=== PATIENT | female | born 1955 | race Caucasian/White ===

== ENCOUNTER → 2021-01-17 14:45 | Outpatient (CLI) | payer OTHER, SELFPAY ==
--- NOTE | ~2021-01-17 | MM_ITS ---
EXAMINATION: MM screening [place] BI w aleyda HISTORY: Screening mammogram, family history of breast cancer in her sister. TECHNIQUE: Craniocaudal and mediolateral oblique 3-D tomosynthesis images were obtained and synthetic 2-D images were generated. CAD analysis was submitted and interpreted. COMPARISON: 08/24/2015, 07/13/2014, 08/16/2011 BREAST PARENCHYMAL COMPOSITION: The breasts are almost entirely fatty. FINDINGS: There is no evidence of suspicious mass, calcification, or architectural distortion to sugg est malignancy in either breast. There has been no suspicious interval change. IMPRESSION: 1. No mammographic evidence of malignancy. 2. Recommend routine screening mammography in one year. BI-RADS Category 1: Negative Reviewed, dictated and finalized at location A. AD REELER
== END ==
PROVIDERS: PCP Family Medicine; Visit Provider Family Medicine
DX: Z12.31 Encounter for screening mammogram for malignant neoplasm of breast (principal)
CPT/HCPCS: 77063; 77067

== ENCOUNTER 2021-10-18 00:08 | Emergency (ER) | payer OTHER, SELFPAY ==
--- NOTE | ~2021-10-18 | CT_ITS ---
EXAMINATION: CT abdomen pelvis wo con EXAM DATE: 10/18/2021 00:37 INDICATION: Left flank pain TECHNIQUE: Spiral CT of the abdomen and pelvis was performed without contrast. Axial, coronal and sag ittal images were reviewed. The dose-length product (DLP) for this examination was 975.32 mGy-cm. T he exposure was tailored according to patient size (auto mA exposure control), and iterative reconstr uction (ASIR) was used as additional dose reduction technique. Comparison is made to prior examinatio n from 06/13/2017. FINDINGS: There is punctate 2 mm left UVJ stone, mild obstructive nephropathy. There is faint bilater al medullary nephrocalcinosis. The uterus is unremarkable. The bladder is unremarkable. The liver , spleen, adrenal glands and pancreas are unremarkable. There are gallstones within an otherwise unr emarkable gallbladder. No evidence of obstructive biliary disease. There is no retroperitoneal or p elvic lymphadenopathy. Small to moderate-sized umbilical fat-containing hernia. The appendix is normal. There is extensive sigmoid and descending colonic diverticulosis. There is n o adjacent inflammatory change to suggest diverticulitis. The stomach and small bowel are unremarkabl e. There is expected amount of colonic stool. No free intraperitoneal gas. The heart is normal i n size. There are no pericardial or pleural effusions. The lung bases are unremarkable. There are no osteoblastic or osteolytic lesions identified. Advanced lower lumbar spondylosis. IMPRESSION: 1. Left UVJ 2 mm calcification, mild obstructive nephropathy. 2. Mild medullary nephrocalcinosis. 3. Colonic diverticulosis. 4. Umbilical fat-containing hernia. 5. Cholelithiasis. Reviewed, dictated and finalized at location A. RANCE SALESMAN
[2021-10-18 00:09] VITALS: BP 106/63; PULSE 66; RESP 21; TEMP 36.3; O2SAT 100
--- NOTE | 2021-10-18 00:29 | ED.FEMALEGU ---
HPI - Female Genitourinary General Chief complaint: Back Pain/Injury Stated complaint: left flank pain Time Seen by Provider: 10/18/21 00:12 Source: patient Mode of arrival: ambulatory Limitations: no limitations History of Present Illness HPI Narrative: 66 year old female with PMH CAD, s/p 3 stents, diabetes, hypertension and diverticulitis complains of sudden onset of L flank pain approximately 2 hours [employer], woke from sleep, also had multiple bouts of vomiting due to pain. Pain described as sharp, non-radiating, constant. Also states diaphoresis and urinary urgency. No fever, no chest pain, no shortness of breath, no abdominal pain. Patient states has had renal stone in the past. No other complaints. Related Data Home Medications Medication Instructions Recorded Confirmed aspirin 325 mg tablet 325 mg PO DAILY 12/03/19 09/13/21 lactobacillus combination no.8 3 3,000 mmu cells PO DAILY 12/03/19 09/13/21 billion cell capsule multivitamin 1 tablet PO DAILY 12/03/19 09/13/21 Allergies Allergy/AdvReac Type Severity Reaction Status Date / Time No Known Allergies Allergy Verified 07/15/21 10:53 Review of Systems Review of Systems: CONSTITUTIONAL: no fever, no weight loss, no confusion EYES: no vision changes, no eye pain ENT: no rhinorrhea, no sore throat, no difficulty swallowing CARDIOVASCULAR: no chest pain, no leg edema, no palpitations RESPIRATORY: no cough, no shortness of breath, no hemoptysis GASTROINTESTINAL: no abdominal pain, positive nausea, positive vomiting, no diarrhea GENITOURINARY: L flank pain, positive dysuria, no hematuria SKIN: no rash, no jaundice MUSCULOSKELETAL: no limb deformity, no trauma. NEUROLOGIC: No headache, no dizziness, no focal weakness PSYCHIATRIC: No hallucinations, no suicidal ideation [facility] Past Medical History Medical History Benign essential HTN CAD (coronary artery disease), [place] coronary artery Diverticulitis large intestine History of ectopic Hyperlipidemia Hypertension Surgical History Surgical History H/O unilateral salpingectomy History of carpal tunnel surgery History of knee surgery Family History Family History Father Hypertension Mother Hypertension Family history of malignant neoplasm of cervix Sibling Cerebrovascular accident Patient's brother is Other Diabetes mellitus Family history of cardiovascular disease Social History Social History Social History: Smoking packs per day: 1 Smoking cigarettes per day: 20.0 Years smoked: 20 Smoking pack-years: 20.00 Smoking status: Never smoker Tobacco type: cigarettes Second hand tobacco smoke exposure: No Smoking end date: 11/26/10 Additional smoking assessment comments: Smoked for 15 years, ended in 2010 Alcohol intake: never Alcohol use details: Occasionally Substance use: never Substance use type: does not use Additional living arrangements comments: Gender identity (if verbalized by the patient): Female Sexual Orientation (if Verbalized by the Patient): Straight or Heterosexual Exam Narrative: General: alert, afebrile, answering all questions appropriately Head: normocephalic, atraumatic Eyes: EOMI bilaterally, anicteric, no injection ENT: moist mucous membranes, oropharynx patent, no rhinorrhea Neck: supple, trachea midline, no JVD Chest: equal chest rise bilaterally, no chest wall trauma noted Lungs: clear to auscultation bilaterally, respirations unlabored Abd: soft, non-distended, non-tender, no rebound, no gaurding, negative Maldonado's : L CVA tenderness B, bladder non-distended EXT: no deformity noted, moving all extremities equally Skin: warm, dry, no pallor Neuro: alert, orie
[2021-10-18 00:48] LABS: Basophils Percent Auto 0.2 % (0.2-1.2); Eosinophils Absolute Auto 0.3 K/mm3 (0-0.3); Eosinophils Percent Auto 2.1 % (0-4.4); Hematocrit 39.5 % (37.0-47.0); Hemoglobin 12.7 g/dL (12.0-15.0); Immature Granulocyte Absolute 0.05 K/mm3 (0.00-0.031); Immature Granulocyte Percent A 0.4 % (0-0.5); Lymphocytes Absolute Auto 2.33 K/mm3 (0.9-3.2); Lymphocytes Percent Auto 18.1 % (18.3-44.2); Mean Corpuscular HGB Conc 32.2 g/dl (32-36); Mean Corpuscular Hemoglobin 29.8 pg (26-34); Mean Corpuscular Volume 92.7 fl (80-100); Mean Platelet Volume 10.3 fl (7.4-10.4); Monocytes Absolute Auto 0.6 K/mm3 (0.1-0.6); Neutrophils Absolute Auto 9.6 K/mm3 (1.3-6.7); Neutrophils Percent Auto 74.2 % (45.5-73.1); Platelet Count Result 311 k/mm3 (150-375); Red Blood Count 4.26 M/mm3 (4.2-5.4); White Blood Count 12.9 K/mm3 (4.5-10.0)
[2021-10-18 00:59] LABS: Anion Gap 7 mmol/L (8-16); Blood Urea Nitrogen 20 mg/dL (7-17); Calcium 9.6 mg/dL (8.4-10.2); Carbon Dioxide 32 mmol/L (22-30); Chloride 99 mmol/L (98-107); Estimated CRCL calculation 61 ml/min; Estimated Glomerular Filt Rate > 60; Glucose 183 mg/dL (65-110); Sodium 138 mmol/L (137-145)
[2021-10-18] MEDS: SODIUM CHLORIDE 0.9% IV 1,000 ML 999 ML IV CONT (01:12)
[2021-10-18] MEDS: fentaNYL CITRATE INJ (*CRX) 100 MCG/2 ML VIAL 25 MCG IV PUSH (01:12)
[2021-10-18] MEDS: ONDANSETRON INJ 4 MG/2 ML VIAL IV PUSH (01:12)
[2021-10-18 02:02] LABS: Add Urine Microscopic? YES; Appearance Urine Cloudy (Clear); Bilirubin Urine 1+ (Negative); Blood Urine 3+ (Negative); Calcium Oxalate Crystals Urine Present /hpf; Color Urine Amber (Yellow); Glucose Urine UA Negative (Negative); Ketones Urine Negative (Negative); Leukocyte Esterase Ur Negative LEU/UL (Negative); Mucus Urine Heavy /lpf; Nitrate Urine Negative (Negative); Protein Urine 2+ mg/dL (Negative); RBC Urine >75 /hpf (0-2); Squamous Epithelial Cell Urine Many /hpf (Few); WBC Urine 21-30 /hpf
[2021-10-18 02:35] VITALS: BP 146/74; PULSE 74; RESP 16; O2SAT 99
== END 2021-10-18 02:35 | disposition home or self-care (01) ==
PROVIDERS: Emergency Provider Emergency Medicine; PCP Family Medicine
DX: N13.2 Hydronephrosis with renal and ureteral calculous obstruction (principal); N39.0 Urinary tract infection, site not specified; I10 Essential (primary) hypertension; I25.10 Atherosclerotic heart disease of native coronary artery without angina pectoris
CPT/HCPCS: 36415; 74176; 80048; 81001; 85025; 87086; 87088; 96365; 96375; 99284; J0696; J2405; J3010; J7030

== ENCOUNTER → 2022-01-25 13:18 | Outpatient (CLI) | payer OTHER, SELFPAY ==
--- NOTE | ~2022-01-25 | DEXA_ITS ---
Bone Density Report Name: JENNIE MARIN Age: 66 Sex: Female Ethnicity: White Date of : 1955 Indication: postmenopausal; screening for osteoporosis; Referring Provider: LUNA MARIEE Study: Bone densitometry was performed. Exam Date: January 25, 2022 Accession number: [id number] Bone Density: Region BMD T-score Z-score Classification AP Spine (L1-L4) 1.105 0.5 2.4 Normal Femoral Neck (Left) 0.633 -1.9 -0.3 Osteopenia Total Hip (Left) 0.909 -0.3 1.1 Normal Femoral Neck (Right) 0.815 -0.3 1.3 Normal Total Hip (Right) 0.896 -0.4 0.9 Normal Total Hip Mean 0.903 -0.4 1.0 Normal World Health Organization criteria for BMD impression classify patients as: Normal (T-score at or above -1.0), Osteopenia (T-score between -1.0 and -2.5), or Osteoporosis (T-score at or below -2.5). 10-year Fracture Risk(1): Major Osteoporotic Fracture 10% Hip Fracture 1.5% Reported Risk Factors: [place] (), Neck BMD=0.633, BMI=34.8 (1) FRAX(R) Version 3.08. Fracture probability calculated for an untreated patient. Fracture probability may be lower if the patient has received treatment. Previous Exams: Region Exam Age BMD T-score BMD Change BMD Change Date g/cm2 vs Baseline vs Previous AP Spine(L1-L4) 01/25/2022 66 1.105 0.5 0.101* 0.101* 08/16/2011 56 1.004 -0.4 Total Hip(Left) 01/25/2022 66 0.909 -0.3 -0.034* -0.034* 08/16/2011 56 0.942 0.0 Total Hip(Right) 01/25/2022 66 0.896 -0.4 -0.057* -0.057* 08/16/2011 56 0.953 0.1 *Denotes significance at 95% confidence level, LSC for AP Spine = 0.022 g/cm2, LSC for Total Hip = 0.027 g/cm2 Clinical Information Provided by Patient: Has used the following medications: Vitamin D Patient maximum height was 65 Menopause Age: 56 No regular weight bearing exercise Does not regularly consume dairy products Drinks caffeinated beverages Onset of menses at age 12 Number of children 1 Impression: The patient has low bone mass, based on the Left Femoral Neck T-score. The patient has an estimated ten-year risk of hip fracture of 1.5% and an estimated ten-year risk of major fracture of 10%, based on the WHO FRAX algorithm. The BMD for the Total Hip(Left) decreased, changing by -0.034 since the last DXA exam. The BMD for the Total Hip(Right) decreased, changing by -0.057 since the last DXA exam. Discussion: BONE DENSITY IS LOW AT ONE OR
== END ==
PROVIDERS: PCP Family Medicine; Visit Provider Family Medicine
DX: Z78.0 Asymptomatic menopausal state (principal); M85.852 Other specified disorders of bone density and structure, left thigh
CPT/HCPCS: 77080

== ENCOUNTER → 2022-06-01 09:46 | Outpatient (CLI) | payer OTHER, SELFPAY ==
--- NOTE | ~2022-06-01 | XR_ITS ---
EXAMINATION: XR thoracic spine 3V DATE: 06/01/2022 10:37 INDICATION: Thoracic back pain TECHNIQUE: AP, lateral and lateral swimmer's views of the thoracic spine were obtained. COMPARISON: None. FINDINGS: There is no fracture, dislocation, or subluxation. There is moderate loss of intervertebral disc space height at multiple levels in the midthoracic spine. The vertebral body heights are mainta ined. Small degenerative osteophytes project from the anterior endplates of multiple vertebral bodies . There is mild S-shaped curvature of the spine. Cholelithiasis is noted. IMPRESSION: 1. Moderate thoracic spondylosis without acute findings. Reviewed, dictated and finalized at location B.
--- NOTE | ~2022-06-01 | XR_ITS ---
EXAMINATION: XR abdomen obstructive series DATE: 06/01/2022 10:37 INDICATION: Abdominal distention TECHNIQUE: Upright and supine views of the abdomen were obtained. COMPARISON: CT, 10/18/2021 FINDINGS: There are no dilated loops of bowel. There is no free intraperitoneal gas. The bowel gas pa ttern is normal. A moderate volume of colonic stool is present. The visualized lung bases are clear . Cholelithiasis is noted. There is severe lower lumbar spondylosis. There is advanced osteoarthritis of the right hip and mild osteoarthritis of the left hip. IMPRESSION: 1. Moderate volume of colonic stool. Nonobstructive bowel gas pattern. 2. Cholelithiasis. Reviewed, dictated and finalized at location B.
== END ==
PROVIDERS: PCP Family Medicine; Visit Provider Family Medicine
DX: R14.0 Abdominal distension (gaseous) (principal); K80.20 Calculus of gallbladder without cholecystitis without obstruction; M47.894 Other spondylosis, thoracic region
CPT/HCPCS: 72072; 74019

== ENCOUNTER → 2023-06-13 11:32 | Outpatient (CLI) | payer OTHER, SELFPAY ==
--- NOTE | ~2023-06-13 | MM_ITS ---
EXAMINATION: MM screening lay[place] BI w aleyda HISTORY: Screening TECHNIQUE: Craniocaudal and mediolateral oblique 3-D tomosynthesis images were obtained and synthetic 2-D images were generated. CAD analysis was submitted and interpreted. COMPARISON: Comparison to multiple prior studies sequentially, with oldest reviewed study dated 07/13. BREAST PARENCHYMAL COMPOSITION: The breasts are almost entirely fatty. FINDINGS: There is no evidence of suspicious mass, calcification, or architectural distortion to sugg est malignancy in either breast. There has been no suspicious interval change. IMPRESSION: 1. No mammographic evidence of malignancy. 2. Recommend routine screening mammography in one year. BI-RADS Category 1: Negative Reviewed, dictated and finalized at location A.
--- NOTE | ~2023-06-13 | CT_ITS ---
CT Scan of the Chest without Contrast: Clinical Indication: Lung cancer screening, personal history of nicotine dependence Technique: Contiguous sections were acquired throughout the chest without intravenous contrast. Dose reduction technique was used on this scan by utilizing automated exposure control and iterative recon struction technique. The dose-length product (DLP) was 172.70 mGy-cm. COMPARISON: 01/11/2011 Findings: There is no evidence of any significant mediastinal, hilar or axillary lymphadenopathy. Small calcifi ed mediastinal and left hilar lymph nodes are present. Coronary artery calcium cages are present. There is no evidence of pleural or pericardial effusion. Calcified lingular granuloma noted. Calcified left lower lobe granuloma also noted.. Images through the upper abdomen reveal no abnormalities. Impression: Lung RADS 2: Benign appearance. 12 month follow-up screening CT advised. Reviewed, dictated and finalized at location . Impression: Lung RADS 2: Benign appearance. 12 month follow-up screening CT advised.
== END ==
PROVIDERS: PCP Family Medicine; Visit Provider Family Medicine
DX: Z12.31 Encounter for screening mammogram for malignant neoplasm of breast (principal); Z12.2 Encounter for screening for malignant neoplasm of respiratory organs; Z87.891 Personal history of nicotine dependence
CPT/HCPCS: 71271; 77063; 77067

== ENCOUNTER 2023-07-11 11:21 | Outpatient (CLI) | payer OTHER, SELFPAY ==
--- NOTE | 2023-07-11 11:30 | ECG_ITS ---
Measurements Intervals [place] Rate: 70 P: 61 DC: 169 QRS: 12 QRSD: 94 T: -9 QT: 366 QTc: 397 Interpretive Statements SINUS RHYTHM LOW QRS VOLTAGE IN PRECORDIAL LEADS [QRS DEFLECTION < 1.0 mV IN CHEST LEADS] POSSIBLE INFERIOR MYOCARDIAL INFARCTION [30 ms Q WAVE IN II/aVF], OF INDETERMINATE AGE NO PREVIOUS ECG AVAILABLE FOR COMPARISON Electronically Signed On 07-11-2023 15:25:31 CDT by Domo Garcia M.D.
[2023-07-11 12:18] LABS: Anion Gap 12 mmol/L (8-16); Blood Urea Nitrogen 18 mg/dL (7-17); Calcium 9.3 mg/dL (8.4-10.2); Carbon Dioxide 22 mmol/L (22-30); Chloride 104 mmol/L (98-107); Estimated Glomerular Filt Rate 55; Glucose 105 mg/dL (65-110); Potassium 5.7 mmol/L (3.4-5.0); Sodium 138 mmol/L (137-145)
== END 2023-07-11 11:22 | disposition home or self-care (01) ==
LOC: ANHSURGERY 11:25
PROVIDERS: Anesthesiology; PCP Family Medicine; Visit Provider Surgery
DX: Z01.810 Encounter for preprocedural cardiovascular examination (principal); Z01.812 Encounter for preprocedural laboratory examination; K43.9 Ventral hernia without obstruction or gangrene; E11.9 Type 2 diabetes mellitus without complications; R94.31 Abnormal electrocardiogram [ECG] [EKG]
CPT/HCPCS: 36415; 80048; 86850; 86900; 86901; 93005

== ENCOUNTER 2023-07-18 00:18 | Day surgery (SDC) | payer OTHER, SELFPAY ==
[2023-07-05 14:01] VITALS: BMI 30.7
--- NOTE | 2023-07-05 14:19 | PC.NURSE ---
PRE-OP INSTRUCTIONS, PLEASE READ CAREFULLY Report to the Outpatient Waiting Room, entrance under the green pavilion located off [facility], at time _0600_ on date _07/18/23_. Planned Procedure Time: _0730_. Time changes happen often and if your time is changed the preop area will call you the afternoon before. - You and your visitor will be asked to self-screen and do not enter if you have any COVID symptoms. - A mask is optional within the hospital at this time. Patients may have clear liquids (water, carbonated beverages, clear teas, apple juice) until 3 hours prior to surgery (0430 AM) with a maximum of 20 ounces. - No food from midnight until time of surgery Take the following medications with a SIP of water the morning of surgery: _CARVEDILOL, & TYLENOL IF NEEDED_ DO NOT STOP ANY OF YOUR OTHER PRESCRIPTION MEDICATIONS PRIOR TO SURGERY ?EXCEPT THE FOLLOWING Medications to discontinue per DR. LO - _EFFIENT 5 DAYS PRIOR TO SURGERY (PER PATIENT), Date to take last dose 07/12/23_ Medications to discontinue per ANESTHESIA -_MULTIVITAMIN 3 DAYS PRIOR TO SURGERY, Date to take last dose 07/14/23_ Please no make-up, nail serbian, hairspray, perfume, deodorant, or body powder the day of surgery. No jewelry (including any body piercings) or valuables the day of surgery, leave them at home. Please take a shower or bath the night before, or the morning of, surgery with an antibacterial soap. Wear comfortable, loose fitting clothing. - Jewelry must be removed prior to entering the operating room. Rings and piercings that are not removed may be cut off. - The hospital will not accept responsibility for valuables. - Please leave all valuables, including medications, at home the day of surgery. If you are going home after surgery, a licensed auto driver must drive you home. - NO public transportation without another adult if you receive anesthesia. - We recommend that an adult stay with you for 24 hours following discharge. - We also recommend that you do not drive, make important decision, drink alcoholic beverages, or take any drugs that were not prescribed by your health care provider for at least 24 hours after your discharge time. Follow any additional instructions given to you from your surgeon. HIBICLENS SHOWER AM OF SURGERY If you or anyone in your household have experienced Covid symptoms in the past week, please notify your surgeon or the nurse liaison at the phone number below for possible testing. Telephone instructions given to _PATIENT_and asked if any additional questions and then verbalized understanding. Patient advised to call surgeon office or pre surgery nurse liaison [phone] if any additional questions.
[2023-07-18] VITALS (33 sets, daily range): BP systolic 84–152; BP diastolic 53–83; PULSE 57–76; RESP 12–18; TEMP 36.3–36.6; O2SAT 90–100
[2023-07-18 06:43] LABS: Glucose Point of Care 113 mg/dl (65-105)
[2023-07-18 06:51] LABS: Potassium 4.6 mmol/L (3.4-5.0)
[2023-07-18] MEDS: ACETAMINOPHEN 500 MG TABLET 1000 MG PO (06:55)
[2023-07-18] MEDS: LACTATED RINGERS 1,000 ML 30 ML IV CONT ×3 (06:55→13:19)
--- NOTE | 2023-07-18 07:11 | WPDANESEPPF ---
Anes - Initial Pre Proc Eval Procedure: Operation Date: 07/18/23 07:30 Proposed Procedures p Laparoscopic Incarcerated Ventral Hernia with Mesh, Davinci Assisted - Drew Mccormick DO Date/Time: 07/18/23 07:11 Surgeon: Drew Mccormick DO Pre Op Diagnosis: Incarcerated Ventral Hernia Patient Data Age: 68 Gender: F Height: 1.68 m Weight: 90.1 kg Last Vital Signs Temp 36.5 C 07/18/23 07:00 Pulse 73 07/18/23 07:00 Resp 14 07/18/23 07:00 BP 123/68 07/18/23 07:00 Pulse Ox 98 07/18/23 07:00 O2 Del Method Room Air 07/18/23 07:00 Allergies Allergy/AdvReac Type Severity Reaction Status Date / Time ibuprofen AdvReac Nose Bleed Verified 07/18/23 07:04 Home Medications Medication Instructions Recorded Confirmed Type multivitamin (Multiple Vitamins 1 tablet PO DAILY 12/03/19 07/05/23 History tablet) carvedilol 6.25 mg tablet 6.25 mg PO Q12H #180 tabs 09/15/21 07/18/23 Rx aspirin 81 mg chewable tablet 81 mg PO DAILY 11/01/21 07/05/23 History metformin 1,000 mg tablet See Rx Instructions .Route 10/09/22 07/05/23 Rx .COMPLEX #180 tabs prasugrel 10 mg tablet See Rx Instructions .Route 04/09/23 07/05/23 Rx .COMPLEX #90 tabs empagliflozin 10 mg tablet See Rx Instructions .Route 05/25/23 07/05/23 Rx (Jardiance) .COMPLEX #30 tabs olmesartan 20 mg tablet See Rx Instructions .Route 05/25/23 07/05/23 Rx .COMPLEX #90 tabs simvastatin 40 mg tablet See Rx Instructions .Route 05/25/23 07/05/23 Rx .COMPLEX #90 tabs acetaminophen 650 mg 1,300 mg PO QAM 07/05/23 07/05/23 History tablet,extended release (Tylenol 8 Hour) cetirizine 10 mg tablet See Rx Instructions .Route .COMPLEX 07/05/23 07/05/23 History cimetidine 200 mg tablet 200 mg PO BID 07/05/23 07/05/23 History diphenhydramine 25 1 tablet PO Q6H PRN Pain 07/05/23 07/05/23 History mg-acetaminophen 500 mg tablet (Tylenol PM Extra Strength) Laboratory Tests 07/18/23 07/18/23 06:35 06:41 Potassium 4.6 mmol/L (3.4-5.0) POC Capillary Glucose 113 H mg/dl (65-105) Patient hx anesthesia problems: other (slow to awaken) Family hx anesthesia problems: none Results Review: All pre-operative results and documents have been reviewed as part of the pre-operative evaluation. [facility] Past Medical History Medical History Benign essential HTN CAD (coronary artery disease), [place] coronary artery Diverticulitis large intestine History of ectopic Hyperlipidemia Hypertension Surgical History Surgical History H/O unilateral salpingectomy History of carpal tunnel surgery History of knee surgery Family History Family History Father Hypertension Mother Hypertension Family history of malignant neoplasm of cervix Sibling Cerebrovascular accident Patient's brother is Other Diabetes mellitus Family history of cardiovascular disease Social History Social History Social History: Smoking packs per day: 1 Smoking cigarettes per day: 20.0 Years smoked: 20 Smoking pack-years: 20.00 Smoking status: Former smoker Tobacco type: cigarettes Second hand tobacco smoke exposure: No Smoking end date: 02/24/11 Additional smoking assessment comments: Smoked for 15 years, ended in 2010 Alcohol intake: current Alcohol use details: 2/MONTH Substance use: never Substance use type: does not use Lack of Transportation: No Lack of Food: Never True Current Housing: I Have Housing Concerned About Future Housing: No Difficulty Paying Gas/Electric Bills: No Difficulty Paying for Meds: No Currently Unemployed: YES Education: Decline to Answer Difficulty w/ Childcare or Family Care: No Living a
--- NOTE | 2023-07-18 07:14 | PM.IMHP ---
H&P: HPI History of Present Illness Date/Time: 07/18/23 07:14 Chief Complaint: ventral hernia Narrative: 68 yo woman presents for incarcerated ventral hernia repair. She reports no changes since last seen in office. Review of Systems Review of Systems: All systems reviewed & are unremarkable except as noted in HPI and below Constitutional: Constitutional: Denies chills, Denies fever(s), Denies headache(s) and Denies weight loss Eyes: Eyes: Denies change in vision ENT: Denies dizziness, Denies headache(s), Denies neck mass and Denies throat swelling Cardiovascular: Cardiovascular: Denies chest pain, Denies lightheadedness and Denies dyspnea Respiratory: Respiratory: Denies cough, Denies dyspnea and Denies wheezing Gastrointestinal: Gastrointestinal: Denies abdominal pain, Denies change in bowel habits, Denies nausea and Denies vomiting Genitourinary: Genitourinary: Denies hematuria and Denies dysuria Musculoskeletal: Musculoskeletal: Reports as per HPI Integumentary/Breasts: Skin/Breast: Reports as per HPI Neurologic: Denies dizziness and Denies headache(s) Allergic/Immunologic: Allergic/Immunologic: Denies throat swelling and Denies wheezing PMFSH Past Medical History Medical History Benign essential HTN CAD (coronary artery disease), [place] coronary artery Diverticulitis large intestine History of ectopic Hyperlipidemia Hypertension Surgical History Surgical History H/O unilateral salpingectomy History of carpal tunnel surgery History of knee surgery Family History Family History Father Hypertension Mother Hypertension Family history of malignant neoplasm of cervix Sibling Cerebrovascular accident Patient's brother is Other Diabetes mellitus Family history of cardiovascular disease Social History Social History Social History: Smoking packs per day: 1 Smoking cigarettes per day: 20.0 Years smoked: 20 Smoking pack-years: 20.00 Smoking status: Former smoker Tobacco type: cigarettes Second hand tobacco smoke exposure: No Smoking end date: 02/24/11 Additional smoking assessment comments: Smoked for 15 years, ended in 2010 Alcohol intake: current Alcohol use details: 2/MONTH Substance use: never Substance use type: does not use Lack of Transportation: No Lack of Food: Never True Current Housing: I Have Housing Concerned About Future Housing: No Difficulty Paying Gas/Electric Bills: No Difficulty Paying for Meds: No Currently Unemployed: YES Education: Decline to Answer Difficulty w/ Childcare or Family Care: No Living arrangements: with family Additional living arrangements comments: PT LIVES WITH SPOUSE FLORA [phone] Occupation/Education: retired Gender identity (if verbalized by the patient): Female Sexual Orientation (if Verbalized by the Patient): Straight or Heterosexual Spiritual care concerns: No Meds Home Medications and Allergies Home Medications Medication Instructions Recorded Confirmed Type multivitamin (Multiple Vitamins 1 tablet PO DAILY 12/03/19 07/05/23 History tablet) carvedilol 6.25 mg tablet 6.25 mg PO Q12H #180 tabs 09/15/21 07/18/23 Rx aspirin 81 mg chewable tablet 81 mg PO DAILY 11/01/21 07/05/23 History metformin 1,000 mg tablet See Rx Instructions .Route 10/09/22 07/05/23 Rx .COMPLEX #180 tabs prasugrel 10 mg tablet See Rx Instructions .Route 04/09/23 07/05/23 Rx .COMPLEX #90 tabs empagliflozin 10 mg tablet See Rx Instructions .Route 05/25/23 07/05/23 Rx (Jardiance) .COMPLEX #30 tabs olmesartan 20 mg tablet See Rx Instructions .Route 05/25/23 07/05/23 Rx .COMPLEX #90 tabs simvastatin 40 mg tablet See Rx Instru
--- NOTE | 2023-07-18 07:16 | WPDHPUPDATE1 ---
History and Physical Update Update Date/Time: 07/18/23 07:16 History and Physical has been reviewed, including an updated exam of the patient. There are NO changes in the patient's condition. Risks, benefits, and alternatives have been discussed and questions answered. Patient agrees to proceed with procedure.
[2023-07-18] MEDS: ceFAZolin 2 GM/D5W 50 ML 2 GM/50 ML BAG IVPB (07:24)
[2023-07-18] MEDS: BUPIVACAINE/EPINEPHRINE 0.5% 30 ML VIAL INFILTRATE (08:07)
--- NOTE | 2023-07-18 08:50 | W.PM.PROC2 ---
Procedure Note - Detailed Date of Procedure 07/18/23 Pre-op Diagnosis Incarcerated Ventral Hernia Post-op Diagnosis Same (3 cm incarcerated ventral hernia) Procedure Performed Laparoscopic incarcerated 3 cm ventral hernia repair with mesh, da Malcolm assisted Surgeon Drew Mccormick, Anesthesia General and Local (Exparel) Indications This is a 68-year-old woman who presented with a hernia superior to her umbilicus that had been present over the last 4+ years. Initially it was asymptomatic, but now it is getting larger and causing some pain. She was found to have an incarcerated ventral hernia about 4-5 cm cephalad to the umbilicus. This appeared to be incarcerated with omentum. Discussions were made with the patient about treatment options and decision was made to proceed with laparoscopic incarcerated ventral hernia repair with mesh, da Malcolm assisted. Findings Laparoscopic incarcerated ventral hernia repair was performed. The patient was found have a 3 cm ventral hernia cephalad to the umbilicus incarcerated with omentum. She also had some omental adhesions up to the abdominal wall from her previous abdominal surgeries. These omental adhesions were taken down and then I was able to reduce the incarcerated omentum from the hernia. The hernia defect measured 3 cm wide. A robotic intraperitoneal onlay mesh technique was utilized for repair. No specimens were obtained for pathology. Description of Procedure Procedure as well as risks, benefits, and alternatives were discussed with the patient. Written consent was obtained and placed in chart prior to procedure. Patient was brought back to surgical suite. She was placed supine on operating table. Time-out was done to confirm patient and procedure. She was then intubated by the anesthesia department. A bump was placed under her left hip, and the bed was flexed slightly to extend the space between her costal margin and iliac crest. Her abdomen was prepped and draped in sterile fashion using chlorhexidine prep. A 5 millimeter incision was made in the left upper quadrant, and a 5 millimeter Optiview trocar was advanced through the abdominal layers under direct visualization. Once inside the abdominal cavity, carbon dioxide insufflation was used to create a pneumoperitoneum. Her abdomen was inspected. An 8 millimeter incision was made in the left lower quadrant, and an 8 millimeter robotic trocar was placed under direct visualization. Another 8 millimeter incision was made in the left lateral abdomen, and an 8 millimeter robotic trocar was placed under direct visualization. 0.5% bupivacaine with epinephrine was infiltrated locally around each of the port sites. The 5 millimeter port was removed, and an 8 mm port was placed under direct visualization. The robotic arms were brought up to the patient's bedside and secured to the ports. The camera and instruments were inserted, and I then moved over to the robotic console and took control of the camera and instruments. After careful thorough inspection of the abdominal cavity, I began my dissection at the hernia. The omental adhesions were taken down using scissors with electrocautery. Then reduced the incarcerated omentum from within the hernia defect and then took down the falciform ligament for about 10 cm cephalad to allow for mesh placement. I then measured the hernia size. The hernia measured 3 cm wide. The fascia was closed using an 0-Stratafix running suture in a vertical fashion. A Ventralight ST 15 cm x 10 cm mesh was then placed within the abdominal cavity. This was oriented vertically with the mesh centered on the hernia defect. The mesh was then secured the center and 4 corners using 3-0 Vicryl simple interrupted sutures. I then secured the mesh circumferentially to the abdominal wall using 2 0 V lock running absorbable suture. The repair was inspected, and one final inspection was made around the abdominal cavity. The robotic instrume
[2023-07-18] MEDS: fentaNYL CITRATE INJ (*CRX) 100 MCG/2 ML VIAL 25 MCG IV PUSH ×6 (09:26→09:46)
[2023-07-18 09:44] LABS: Glucose Point of Care 153 mg/dl (65-105)
[2023-07-18] MEDS: HYDROmorphone HCL INJ (*CRX) 1 MG/ML SYR 0.5 MG IV PUSH ×6 (09:52→14:53)
[2023-07-18] MEDS: ONDANSETRON INJ 4 MG/2 ML VIAL IV PUSH ×2 (10:27→16:56)
[2023-07-18] MEDS: diphenhydrAMINE HCl INJ 50 MG/ML VIAL 25 MG IV PUSH (11:08)
[2023-07-18] MEDS: SCOPOLAMINE 1.5 MG PATCH TRANSDERM (11:08)
[2023-07-18] MEDS: oxyCODONE HCL (*CRX) 5 MG TAB IR PO (12:45)
--- NOTE | 2023-07-18 14:58 | SUR.PHASEII ---
Patient being admitted to room 251 for pain control. Patient's family updated on plan. Patient's daughter at bedside. All of patient's belongings transferred with patient. Report given to 2 medical RN.
--- NOTE | 2023-07-18 15:29 | ADMGEN ---
This patient, Sindy Chapman, was admitted to 2 Medical Room 251-01. Patient/family oriented to hospital policies and general routines including ID bracelet, bed and alarms, visiting hours, pain management, procedures, bathroom and other care routines, personal items, smoking policy, room service/diet, and visiting hours. Information on how to activate the Rapid Response Team has been discussed. Patient/Family are encouraged to report perceived risks to care and to ask questions if they do not understand what they are told or what they should do.
[2023-07-18] MEDS: metFORMIN HCL 500 MG TABLET BY MOUTH (16:36)
[2023-07-18] MEDS: LACTATED RINGERS 1,000 ML 100 ML IV CONT (16:41)
[2023-07-18 16:58] LABS: Glucose Point of Care 159 mg/dl (65-105)
[2023-07-18] MEDS: oxyCODONE/ACETAMINOPHEN (*CRX) 5-325 MG TABLET 2 TABLET PO (16:58)
--- NOTE | 2023-07-18 18:47 | PC.NURSE ---
On 07/18/23, the Licence pending nurse, Ashanti Mendoza, provided care and completed [facility] documentation on this patient. I have reviewed the Licence pending nurses documentation and agree with the findings.
[2023-07-18 20:03] LABS: Glucose Point of Care 135 mg/dl (65-105)
[2023-07-18] MEDS: FAMOTIDINE 10 MG TABLET PO (21:06)
[2023-07-18] MEDS: carvediloL 6.25 MG TABLET PO (21:06)
[2023-07-19] MEDS: oxyCODONE/ACETAMINOPHEN (*CRX) 5-325 MG TABLET 1 TABLET PO (03:08)
[2023-07-19 05:34] LABS: Hematocrit 36.2 % (37.0-47.0); Mean Corpuscular HGB Conc 30.4 g/dl (32-36); Mean Corpuscular Hemoglobin 28.9 pg (26-34); Platelet Count Result 245 k/mm3 (150-375); Red Blood Count 3.81 M/mm3 (4.2-5.4); Red Cell Distribution Width 14.7 % (11.5-14.5); White Blood Count 10.6 K/mm3 (4.5-10.0)
[2023-07-19 05:36] VITALS: BP 111/59; PULSE 63; RESP 17; TEMP 36.6; O2SAT 96
[2023-07-19 05:55] LABS: Anion Gap 1 mmol/L (8-16); Blood Urea Nitrogen 18 mg/dL (7-17); Calcium 8.7 mg/dL (8.4-10.2); Carbon Dioxide 30 mmol/L (22-30); Chloride 101 mmol/L (98-107); Estimated CRCL calculation 59 ml/min; Estimated Glomerular Filt Rate > 60; Glucose 108 mg/dL (65-110); Potassium 4.6 mmol/L (3.4-5.0); Sodium 132 mmol/L (137-145)
[2023-07-19 08:23] VITALS: PULSE 58
[2023-07-19] MEDS: ASPIRIN 81 MG CHEWABLE TABLET PO (08:23)
[2023-07-19] MEDS: carvediloL 6.25 MG TABLET PO (08:23)
[2023-07-19] MEDS: polyethylene glycoL 3350 17 GM POWD.PACK PO (08:25)
[2023-07-19] MEDS: EMPAGLIFLOZIN 10 MG TABLET BY MOUTH (08:25)
[2023-07-19] MEDS: OLMESARTAN MEDOXOMIL 20 MG TABLET BY MOUTH (08:25)
[2023-07-19] MEDS: metFORMIN HCL 500 MG TABLET BY MOUTH (08:25)
[2023-07-19] MEDS: FAMOTIDINE 10 MG TABLET PO (08:25)
[2023-07-19 08:33] LABS: Glucose Point of Care 101 mg/dl (65-105)
[2023-07-19] MEDS: oxyCODONE/ACETAMINOPHEN (*CRX) 5-325 MG TABLET 2 TABLET PO (08:58)
--- NOTE | 2023-07-19 11:21 | PM.DS ---
DS: Admitting Diagnosis Discharge Date 07/19/2023 Admitting Diagnosis Postoperative pain, status post laparoscopic incarcerated ventral hernia repair with mesh, da Malcolm assisted DS: Discharge Diagnosis Discharge Diagnosis (1) Postoperative pain: Code(s): G89.18 - Other acute postprocedural pain Status: Acute (2) Encounter for examination following surgery: Code(s): Z09 - Encounter for follow-up examination after completed treatment for conditions other than malignant neoplasm Status: Acute (3) Good recovery after surgery: Code(s): Z98.890 - Other specified postprocedural states Status: Acute (4) Hypertension: Qualifiers: Hypertension type: primary hypertension Qualified Code(s): I10 - Essential (primary) hypertension Code(s): I10 - Essential (primary) hypertension Status: Acute (5) Antiplatelet or antithrombotic long-term use: Code(s): Z79.02 - meterman (current) use of antithrombotics/antiplatelets Status: Acute DS: Summary Hospital Course Reason for hospitalization: Postoperative pain after incarcerated ventral hernia repair Hospital Course: This is a 68-year-old woman who was placed in outpatient extended recovery after undergoing robotic assisted laparoscopic incarcerated ventral hernia repair with mesh on 07/18/2023. Her surgery was uncomplicated, but patient was experiencing significant amount of postoperative pain and nausea and vomiting. She was given medications in recovery to help her postoperative pain, but patient still continued to experience significant breakthrough pain requiring IV pain medications. She was placed in the hospital for continued recovery. Her diet and activity were slowly advanced as tolerated. Her pain gradually improved with the medications and she was able to tolerate her diet. She was then discharged on 07/19/2023. Status at Discharge Functional status at discharge: independent ambulation Overall status at discharge: patient is progressing back to baseline Time Spent with Patient Time attestation: Total time spent providing and/or coordinating discharge services: Time spent: Less than 30 minutes Exam Const: General: comfortable, no acute distress and alert Resp: Effort & Inspection: normal respiratory effort Auscultation: clear to auscultation bilaterally Cardio: Rate: regular rate Rhythm: regular rhythm Heart sounds: S1 normal heart sound present and S2 normal heart sound present GI: Inspection: normal to inspection and incision (Intact with glue) GI Palp: Yes abdominal tenderness (Incisional and supraumbilical), Yes Soft to palpation and No Hernia present Auscultation: normal bowel sounds DS: Data Data Completed and Pending Labs on day of discharge: Labs from last 24 hours 07/19/23 07/19/23 07/18/23 08:29 05:09 19:45 WBC 10.6 H RBC 3.81 L Hgb 11.0 L Hct 36.2 L MCV 95.0 MCH 28.9 MCHC 30.4 L RDW 14.7 H Plt Count 245 MPV 10.0 Sodium 132 L Potassium 4.6 Chloride 101 Carbon Dioxide 30 Anion Gap 1 L BUN 18 H Creatinine 0.90 Estim Creat Clear Calc 59 Estimated GFR > 60 Glucose 108 POC Capillary Glucose 101 135 H Calcium 8.7 07/18/23 16:54 WBC RBC Hgb Hct MCV MCH MCHC RDW Plt Count MPV Sodium Potassium Chloride Carbon Dioxide Anion Gap BUN Creatinine Estim Creat Clear Calc Estimated GFR Glucose POC Capillary Glucose 159 H Calcium Discharge Plan Discharge Patient Disposition: Home, Self-Care Discharge Instructions: DISCHARGE INSTRUCTION SHEET FOR HERNIA, GALLBLADDER AND APPENDIX SURGERIES DR. LO PATIENT TO TAKE HOME 1. May shower, no soaking in bath x 2weeks. 2. Call office for: Wound increasingly painful or bleeding Vomiting Fever of greater than 101 degrees 3. If no bowel movement for three days, take 1 oz. (30 ml) Milk of Magnesia or Dominique
[2023-07-19 12:10] LABS: Glucose Point of Care 97 mg/dl (65-105)
--- NOTE | 2023-07-19 14:14 | PC.NURSE ---
On 07/19/23, the Licence pending nurse, Ashanti Mendoza, provided care and completed [facility] documentation on this patient. I have reviewed the Licence pending nurse's documentation and agree with the findings.
== END 2023-07-19 12:15 | disposition home or self-care (01) ==
LOC: ANHSURGERY 08:50 → ANH2MED 15:09
PROVIDERS: Anesthesiology; PCP Family Medicine; Visit Provider Surgery
PROC: (CPT 49594; principal; 2023-07-18 07:30)
DX: K43.6 Other and unspecified ventral hernia with obstruction, without gangrene (principal); G89.18 Other acute postprocedural pain; R11.2 Nausea with vomiting, unspecified; I10 Essential (primary) hypertension; I25.10 Atherosclerotic heart disease of native coronary artery without angina pectoris; E78.5 Hyperlipidemia, unspecified; Z79.84 Long term (current) use of oral hypoglycemic drugs; Z79.82 Long term (current) use of aspirin; Z79.02 Long term (current) use of antithrombotics/antiplatelets; Z87.891 Personal history of nicotine dependence; E66.9 Obesity, unspecified; Z68.32 Body mass index [BMI] 32.0-32.9, adult
CPT/HCPCS: 49594; S2900; 36415; 80048; 82948; 84132; 85027; 86850; 86900; 86901; 93005; A9270; C1781; J0690; J1100; J1170; J1200; J2250; J2405; J2704; J3010; J7030; J7120

== ENCOUNTER 2024-06-16 10:15 | Outpatient (CLI) | payer OTHER, SELFPAY ==
--- NOTE | ~2024-06-16 | CT_ITS ---
EXAMINATION: CT lung screening DATE: 06/16/2024 10:27 INDICATION: Lung cancer screening. History of smoking. TECHNIQUE: Computed tomography (CT) of the chest was performed without intravenous contrast. The dose -length product was 147.87 mGy-cm. Automated exposure control and iterative reconstruction technique were employed. COMPARISON: CT dated 06/13/2023 FINDINGS: Heart size normal. No significant pleural or pericardial effusion. There are gallstones. Th ere is an extrarenal pelvis of the right kidney, partially visualized. No thoracic lymphadenopathy. T here is atherosclerosis of the aorta and coronary arteries. No endobronchial lesions. No focal airspa ce consolidation. No pneumothorax. There are small nodules in the upper lobes measuring 3 mm or less. There are scattered calcified granulomas. Mild thoracic spondylosis. No acute osseous abnormality. IMPRESSION: 1. Lung-RADS category 2: Benign appearance or behavior. Continue annual screening with noncontrast lo w-dose chest CT in 12 months. Reviewed, dictated and finalized at location B. IMPRESSION: 1. Lung-RADS category 2: Benign appearance or behavior. Continue annual screeni ng with noncontrast low-dose chest CT in 12 months.
== END 2024-06-16 10:16 ==
LOC: MICIMG 10:16
PROVIDERS: PCP Family Medicine; Visit Provider Family Medicine
DX: Z12.2 Encounter for screening for malignant neoplasm of respiratory organs (principal); Z87.891 Personal history of nicotine dependence
CPT/HCPCS: 71271

== ENCOUNTER 2024-06-30 09:13 | Outpatient (CLI) | payer OTHER, SELFPAY ==
--- NOTE | ~2024-06-30 | DEXA_ITS ---
Bone Density Report Name: JENNIE MARIN Age: 69 Sex: Female Ethnicity: White Date of : 1955 Indication: postmenopausal; screening for osteoporosis; height loss; history of glucocorticoids; Referring Provider: LUNA MARIEE Study: Bone densitometry was performed. Exam Date: June 30, 2024 Accession number: [id number] Bone Density: Region BMD T-score Z-score Classification AP Spine(L1-L4) 1.125 0.7 2.8 Normal Femoral Neck (Left) 0.652 -1.8 0.0 Osteopenia Total Hip (Left) 0.893 -0.4 1.1 Normal Femoral Neck (Right) 0.805 -0.4 1.4 Normal Total Hip (Right) 0.904 -0.3 1.1 Normal Total Hip Mean 0.898 -0.4 1.1 Normal World Health Organization criteria for BMD impression classify patients as: Normal (T-score at or above -1.0), Osteopenia (T-score between -1.0 and -2.5), or Osteoporosis (T-score at or below -2.5). 10-year Fracture Risk(1): Major Osteoporotic Fracture 16% Hip Fracture 2.8% Reported Risk Factors: [place] (), Neck BMD=0.652, BMI=30.4, glucocorticoids (1) FRAX(R) Version 3.08. Fracture probability calculated for an untreated patient. Fracture probability may be lower if the patient has received treatment. Clinical Information Provided by Patient: Has taken Glucocorticoids Patient maximum height was 66.0 Does not regularly consume dairy products Drinks caffeinated beverages Onset of menses at age 10 Number of children 1 Impression: The patient has low bone mass, based on the Left Femoral Neck T-score. The patient has an estimated ten-year risk of hip fracture of 2.8% and an estimated ten-year risk of major fracture of 16%, based on the WHO FRAX algorithm. The patient has risk factors, including: history of glucocorticoid therapy. Discussion: BONE DENSITY IS LOW AT ONE OR MORE SKELETAL SITES. This patient's lowest T-score is low at one or more skeletal sites. It meets the World Health Organization's (WHO) criteria for ?low bone mass? (T-score between -1.0 and -2.5). The patient's 10-year risk of fracture as calculated by FRAX is less than the threshold where pharmacological therapy is recommended by the National Osteoporosis Foundation (NOF). However, all treatment decisions require clinical judgment and consideration of individual patient factors, including patient preferences, comorbidities, previous drug use, risk factors not captured in the FRAX model (e.g., frailty, falls, vitamin D deficiency, increased bone turnover, interval significant decline in bone density) and possible under or overestimation of fracture risk by FRAX. The patient should follow a healthful lifestyle (good nutrition with adequate calcium and vitamin D, and appropriate weight-bearing exercise). Follow-Up: Consider repeating this study in 2 to 3 years to reassess this
== END 2024-06-30 09:14 | disposition home or self-care (01) ==
LOC: ANHIMG 09:15
PROVIDERS: PCP Family Medicine; Visit Provider Family Medicine
DX: Z78.0 Asymptomatic menopausal state (principal)
CPT/HCPCS: 77080

== ENCOUNTER 2024-07-02 11:13 | Outpatient (CLI) | payer OTHER, SELFPAY ==
--- NOTE | ~2024-07-02 | XR_ITS ---
Left Knee Technique: AP, lateral, and sunrise views were obtained. Clinical History: Pain Findings: No fracture or dislocation is seen. Osseous alignment is anatomic. Mild tricompartmental de generative spurring noted. Soft tissues are unremarkable. No joint effusion is seen. Impression: . Mild tricompartmental degenerative spurring. Reviewed, dictated and finalized at location . Impression: . Mild tricompartmental degenerative spurring.
== END 2024-07-02 11:14 | disposition home or self-care (01) ==
PROVIDERS: PCP Family Medicine; Visit Provider Physician Assistant
DX: M25.762 Osteophyte, left knee (principal)
CPT/HCPCS: 73562

== ENCOUNTER 2024-08-27 15:28 | Outpatient (CLI) | payer OTHER, SELFPAY ==
--- NOTE | ~2024-08-27 | MM_ITS ---
EXAMINATION: MM screening layton BI w aleyda HISTORY: Screening TECHNIQUE: Craniocaudal and mediolateral oblique 3-D tomosynthesis images were obtained and synthetic 2-D images were generated. CAD analysis was submitted and interpreted. COMPARISON: Comparison to multiple prior studies sequentially, with oldest reviewed study dated 08/24. BREAST PARENCHYMAL COMPOSITION: Not Dense: The breasts are almost entirely fatty. FINDINGS: There is no evidence of suspicious mass, calcification, or architectural distortion to sugg est malignancy in either breast. There has been no suspicious interval change. IMPRESSION: 1. No mammographic evidence of malignancy. 2. Recommend routine screening mammography in one year. BI-RADS Category 1: Negative Reviewed, dictated and finalized at location B.
== END 2024-08-27 15:29 | disposition home or self-care (01) ==
LOC: MICIMG 15:28
PROVIDERS: PCP Family Medicine; Visit Provider Family Medicine
DX: Z12.31 Encounter for screening mammogram for malignant neoplasm of breast (principal)
CPT/HCPCS: 77063; 77067

== ENCOUNTER 2024-11-05 01:27 | Day surgery (SDC) | payer OTHER, SELFPAY ==
[2024-10-29 14:21] VITALS: BMI 27.4
--- NOTE | 2024-10-30 10:48 | PC.NURSE ---
Spoke with patient regarding medication prasugrel(effient), Pt. verbalizes understanding that the last dose is to be taken on 10/31/2024 and the Endoscopist will instruct them when to restart after the procedure.
[2024-11-05 07:08] VITALS: BP 125/85; PULSE 88; RESP 16; TEMP 36.2; O2SAT 97
[2024-11-05] MEDS: LACTATED RINGERS 1,000 ML 150 ML IV CONT (07:21)
[2024-11-05 07:25] LABS: Glucose Point of Care 112 mg/dl (65-105)
--- NOTE | 2024-11-05 07:48 | P.PNAN_ITS ---
Anes - Initial Pre Proc Eval Procedure: Operation Date: 11/05/24 08:30 Proposed Procedures p Screening Colonoscopy - Aime Gooden MD Date/Time: 11/05/24 07:48 Surgeon: Aime Gooden MD Pre Op Diagnosis: screening neoplasm of colon, hx of colon polyps Patient Data Age: 69 Gender: F Height: 1.66 m Weight: 76.6 kg Last Vital Signs Temp 36.2 C L 11/05/24 07:08 Pulse 88 11/05/24 07:08 Resp 16 11/05/24 07:08 BP 125/85 11/05/24 07:08 Pulse Ox 97 11/05/24 07:08 O2 Del Method Room Air 11/05/24 07:08 Allergies Allergy/AdvReac Type Severity Reaction Status Date / Time ibuprofen AdvReac Nose Bleed Verified 11/05/24 07:06 Home Medications ?Medication ?Instructions ?Recorded ?Confirmed ?Type multivitamin (Multiple Vitamins 1 tablet PO DAILY 12/03/19 11/05/24 History tablet) carvedilol 6.25 mg tablet 6.25 mg PO Q12H #180 tabs 09/15/21 11/05/24 Rx aspirin 81 mg chewable tablet 81 mg PO DAILY 11/01/21 11/05/24 History cimetidine 200 mg tablet 200 mg PO BID 07/05/23 11/05/24 History simvastatin 40 mg tablet See Rx Instructions .Route 05/19/24 11/05/24 Rx .COMPLEX #90 tabs olmesartan 20 mg tablet See Rx Instructions .Route 07/24/24 11/05/24 Rx .COMPLEX #90 tabs prasugrel 10 mg tablet See Rx Instructions .Route 07/24/24 11/05/24 Rx .COMPLEX #90 tabs metformin 1,000 mg tablet See Rx Instructions .Route 08/20/24 11/05/24 Rx .COMPLEX #180 tabs empagliflozin 10 mg tablet See Rx Instructions .Route 09/21/24 11/05/24 Rx (Jardiance) .COMPLEX #90 tabs fluticasone propionate 50 1 spray intranasal Q12H #48 grams 10/30/24 11/05/24 Rx mcg/actuation nasal spray,suspension Laboratory Tests 11/05/24 07:19 POC Capillary Glucose 112 H mg/dl (65-105) Patient hx anesthesia problems: post op nausea/vomiting Family hx anesthesia problems: none Results Review: All pre-operative results and documents have been reviewed as part of the pre- operative evaluation. [facility] Past Medical History Medical History Pre-op exam Pre-op testing Encounter for follow-up examination after completed treatment for conditions other than malignant neoplasm Postoperative anemia Hyponatremia Good recovery after surgery Encounter for examination following surgery Postoperative pain Atherosclerosis of coronary artery of [place] heart with stable angina pectoris Incarcerated ventral hernia Ventral hernia Biceps tendonitis of both shoulders Screen for colon cancer Constipation by delayed colonic transit Back pain Abdominal pain Ureteral stone with hydronephrosis Dysuria History of ectopic Postmenopausal Borderline diabetes CAD (coronary artery disease) Hyperlipidemia Breast cancer screening Trigger thumb, right thumb Earache on left Diverticulitis large intestine Benign essential HTN CAD (coronary artery disease), [place] coronary artery Hypertension Surgical History Surgical History H/O ventral hernia repair Laparoscopic incarcerated 3 cm ventral hernia repair with mesh, da Malcolm assisted on 07/18/23 [facility] H/O abdominal surgery H/O unilateral salpingectomy History of knee surgery History of carpal tunnel surgery Family History Family History Father Hypertension Mother Hypertension Family history of malignant neoplasm of cervix Sibling Cerebrovascular accident Patient's brother is Other Diabetes mellitus Family history of cardiovascular disease Social History Social History Social History: Smoking packs per day: 1 Smoking cigarettes per day: 20.0 Years smoked: 20 Smoking pack-years: 20.00 Smoking status: Former smoker Second hand tobacco smoke exposure: No Additional smoking assessment comments: Smoked for 15 years, ended in 2010 Alcohol intake: current Drinks per week: 1 Alcohol use details: 2/MONTH Substance use: never Substance use type: does not use Do You Feel Safe in your Home?: Yes Lack of Transportation: No Lack of Food: Never True Current Housing: I Have Housing Concerned About Future Housing: No Difficulty Paying Gas/Electric Bills: No Difficulty Paying for Meds: No Currently Unemployed: No Education: Associate Degree Difficulty w/ Childcare or Family Care: No Living arrangements: with family Occupation/Education: retired Gender identity (if verbalized by the patient): Female Sexual Orientation (if Verbalized by the Patient): Straight or Heterosexual Spiritual care concerns: No Anes - Eval Final PreProcedure Day of Procedure 11/05/24 07:48 Patient weight: overweight Heart: regular rate and rhythm Lungs: decreased breath sounds Airway: Mallampati scale class III Last oral intake: >/= 8 hours ASA classification: III Emergent: no Anesthetic plan: proceed Anesthesia type and monitoring: general GIVS and standard monitoring Results Review: All pre-operative results and documents have been reviewed as part of the pre- operative evaluation. Informed Consent: The patient's anesthetic plan and its attendant risks and benefits were discussed with the patient/family/POA. Questions were solicited and answers provided to the satisfaction of the patient/family/POA.
--- NOTE | 2024-11-05 08:12 | PM.HPGS ---
History of Present Illness History of Present Illness Consent: Risks, benefits, and alternatives have been discussed and questions answered. Patient agrees to proceed with procedure. Chief complaint: screening neoplasm of colon, hx of colon polyps Narrative: iSndy Chapman is a 69 year old female with previous adenoma colon polyp but last colonoscopy without any in 2019. Review of Systems Review of Systems: All systems reviewed & are unremarkable except as noted in HPI and below PMFSH Past Medical History Medical History (Updated 11/05/24 @ 08:14 by Aime Gooden MD) Colon polyp Pre-op exam Pre-op testing Encounter for follow-up examination after completed treatment for conditions other than malignant neoplasm Postoperative anemia Hyponatremia Good recovery after surgery Encounter for examination following surgery Postoperative pain Atherosclerosis of coronary artery of [place] heart with stable angina pectoris Incarcerated ventral hernia Ventral hernia Biceps tendonitis of both shoulders Screen for colon cancer Constipation by delayed colonic transit Back pain Abdominal pain Ureteral stone with hydronephrosis Dysuria History of ectopic Postmenopausal Borderline diabetes CAD (coronary artery disease) Hyperlipidemia Breast cancer screening Trigger thumb, right thumb Earache on left Diverticulitis large intestine Benign essential HTN CAD (coronary artery disease), [place] coronary artery Hypertension Surgical History Surgical History H/O ventral hernia repair Laparoscopic incarcerated 3 cm ventral hernia repair with mesh, da Malcolm assisted on 07/18/23 [facility] H/O abdominal surgery H/O unilateral salpingectomy History of knee surgery History of carpal tunnel surgery Family History Family History Father Hypertension Mother Hypertension Family history of malignant neoplasm of cervix Sibling Cerebrovascular accident Patient's brother is Other Diabetes mellitus Family history of cardiovascular disease Social History Social History Social History: Smoking packs per day: 1 Smoking cigarettes per day: 20.0 Years smoked: 20 Smoking pack-years: 20.00 Smoking status: Former smoker Second hand tobacco smoke exposure: No Additional smoking assessment comments: Smoked for 15 years, ended in 2010 Alcohol intake: current Drinks per week: 1 Alcohol use details: 2/MONTH Substance use: never Substance use type: does not use Do You Feel Safe in your Home?: Yes Lack of Transportation: No Lack of Food: Never True Current Housing: I Have Housing Concerned About Future Housing: No Difficulty Paying Gas/Electric Bills: No Difficulty Paying for Meds: No Currently Unemployed: No Education: Associate Degree Difficulty w/ Childcare or Family Care: No Living arrangements: with family Occupation/Education: retired Gender identity (if verbalized by the patient): Female Sexual Orientation (if Verbalized by the Patient): Straight or Heterosexual Spiritual care concerns: No Meds Home Medications and Allergies Home Medications ?Medication ?Instructions ?Recorded ?Confirmed ?Type multivitamin (Multiple Vitamins 1 tablet PO DAILY 12/03/19 11/05/24 History tablet) carvedilol 6.25 mg tablet 6.25 mg PO Q12H #180 tabs 09/15/21 11/05/24 Rx aspirin 81 mg chewable tablet 81 mg PO DAILY 11/01/21 11/05/24 History cimetidine 200 mg tablet 200 mg PO BID 07/05/23 11/05/24 History simvastatin 40 mg tablet See Rx Instructions .Route 05/19/24 11/05/24 Rx .COMPLEX #90 tabs olmesartan 20 mg tablet See Rx Instructions .Route 07/24/24 11/05/24 Rx .COMPLEX #90 tabs prasugrel 10 mg tablet See Rx Instructions .Route 07/24/24 11/05/24 Rx .COMPLEX #90 tabs metformin 1,000 mg tablet See Rx Instructions .Route 08/20/24 11/05/24 Rx .COMPLEX #180 tabs empagliflozin 10 mg tablet See Rx Instructions .Route 09/21/24 11/05/24 Rx (Jardiance) .COMPLEX #90 tabs fluticasone propionate 50 1 spray intranasal Q12H #48 grams 10/30/24 11/05/24 Rx mcg/actuation nasal spray,suspension Allergies Allergy/AdvReac Type Severity Reaction Status Date / Time ibuprofen AdvReac Nose Bleed Verified 11/05/24 07:06 Vital Signs Vital Signs - 24 hr 11/05/24 07:08 Temperature 97.1 F L Pulse Rate 88 Respiratory Rate 16 Blood Pressure 125/85 Pulse Oximetry 97 Oxygen Delivery Room Air Exam Const: General: comfortable and no acute distress HENMT: Face/Nose/Sinus: Normal nares present Eyes: General: appearance normal, both eyes and all related structures Neck: Neck: no JVD Resp: Auscultation: clear to auscultation bilaterally Cardio: Rate: regular rate Rhythm: regular rhythm GI: Inspection: non-distended GI Palp: Yes Soft to palpation Skin: General skin exam: normal color Neuro: General: gait normal Speech: normal speech Extrem: General: normal to inspection Psych: Mental Status: mental status grossly normal Assessment and Plan Assessment and plan (1) Colon polyp: Code(s): K63.5 - Polyp of colon Status: Acute Assessment and Plan: colonoscopy
[2024-11-05 08:35] VITALS: BP 120/43; PULSE 83; RESP 25; O2SAT 100
[2024-11-05 08:45] VITALS: BP 118/70; PULSE 77; RESP 21; O2SAT 100
[2024-11-05 08:55] VITALS: BP 106/74; PULSE 74; RESP 18; O2SAT 98
== END 2024-11-05 09:01 | disposition home or self-care (01) ==
PROVIDERS: PCP Family Medicine; Visit Provider Internal Medicine Gastroenterology
PROC: 0DJD8ZZ Inspection of Lower Intestinal Tract, Via Natural or Artificial Opening Endoscopic (ICD-10-PCS; CPT 45378; principal; 2024-11-05 08:30)
DX: Z12.11 Encounter for screening for malignant neoplasm of colon (principal); D12.5 Benign neoplasm of sigmoid colon; D12.3 Benign neoplasm of transverse colon; K64.8 Other hemorrhoids; K57.30 Diverticulosis of large intestine without perforation or abscess without bleeding; E78.5 Hyperlipidemia, unspecified; I10 Essential (primary) hypertension; E87.1 Hypo-osmolality and hyponatremia; I25.118 Atherosclerotic heart disease of native coronary artery with other forms of angina pectoris; Z79.82 Long term (current) use of aspirin; Z79.84 Long term (current) use of oral hypoglycemic drugs; Z98.890 Other specified postprocedural states; Z87.891 Personal history of nicotine dependence; Z87.442 Personal history of urinary calculi; Z87.19 Personal history of other diseases of the digestive system; Z80.49 Family history of malignant neoplasm of other genital organs; Z82.49 Family history of ischemic heart disease and other diseases of the circulatory system
CPT/HCPCS: 45385; 82948; 88305; J2003; J2704; J7120

== ENCOUNTER 2025-08-31 10:38 | Outpatient (CLI) | payer OTHER, SELFPAY ==
--- NOTE | ~2025-08-31 | MM_ITS ---
EXAMINATION: screening [facility] BI w aleyda INDICATION: Asymptomatic, referred for screening mammogram COMPARISON: 08/27/2024 through 08/16/2011 TECHNIQUE: Digital Breast Tomosynthesis CC, MLO views of Both breasts were obtained with computer-aided detection to assist in interpretation of the study. FINDINGS: The breasts are almost entirely fatty. There is a mass in the upper outer right breast at middle third. Elsewhere, there are no mammographic features of malignancy. IMPRESSION: 1. Right breast Mass. 2. No evidence of malignancy in the Left breast. RECOMMENDATION: Right breast Diagnostic mammogram with true lateral, appropriate spot compression views and an ultrasound if needed. BI-RADS Category 0: Incomplete: Needs additional imaging evaluation. Reviewed, dictated and finalized at location B. IMPRESSION: 1. Right breast Mass. 2. No evidence of malignancy in the Left breast. RECOMMENDATION: Right breast Diagnostic mammogram with true lateral, appropriate spot compressi on views and an ultrasound if needed. BI-RADS Category 0: Incomplete: Needs additional imaging evaluation.
== END 2025-08-31 10:39 | disposition home or self-care (01) ==
LOC: MICIMG 10:39
PROVIDERS: PCP Family Medicine; Visit Provider Student in an Organized Health Care Education/Training Program
DX: Z12.31 Encounter for screening mammogram for malignant neoplasm of breast (principal); R92.8 Other abnormal and inconclusive findings on diagnostic imaging of breast
CPT/HCPCS: 77063; 77067

== ENCOUNTER 2025-10-15 08:21 | Outpatient (CLI) | payer OTHER, SELFPAY ==
--- NOTE | ~2025-10-15 | MMUS_ITS ---
EXAMINATION: MM diagnostic [place] RT w aleyda, US breast RT limited INDICATION: 70-year old female; BI-RADS 0, right breast finding COMPARISON: 08/31/2025 TECHNIQUE: Digital breast tomosynthesis True lateral and spot compression CC and MLO views of the RIGHT breast were obtained with computer-aided detection to assist in interpretation of the study. FINDINGS: The breasts are almost entirely fatty. A circumscribed mass persists in the upper outer at middle third. Ultrasound was performed for further evaluation. RIGHT BREAST ULTRASOUND FINDINGS: Targeted evaluation of the area of concern was completed. There is a 0.3 x 0.3 x 0.2 cm anechoic mass at 10:00 location 5 cm from the nipple in the RIGHT breast that correlates to the area of Mammographic finding. IMPRESSION: Benign RIGHT breast cyst correlates to mammographic finding. No further investigation necessary. RECOMMENDATION: ANNUAL SCREENING BILATERAL MAMMOGRAPHY BI-RADS 2, BENIGN Reviewed, dictated and finalized at location C. PIERCER IMPRESSION: Benign RIGHT breast cyst correlates to mammographic finding. No further investi gation necessary. RECOMMENDATION: ANNUAL SCREENING BILATERAL MAMMOGRAPHY BI-RADS 2, BENIGN
== END 2025-10-15 08:22 | disposition home or self-care (01) ==
LOC: MICIMG 08:22
PROVIDERS: PCP Family Medicine; Visit Provider Student in an Organized Health Care Education/Training Program
DX: R92.8 Other abnormal and inconclusive findings on diagnostic imaging of breast (principal)
CPT/HCPCS: 76642; 77061; 77065; G0279